=== PATIENT | female | born 1975 | race Caucasian/White ===

== ENCOUNTER 2021-08-30 07:22 | Day surgery (SDC) | payer BC ==
[2021-08-29 11:19] VITALS: BMI 24.2
[2021-08-30] MEDS ORDERED: fentaNYL Citrate/PF 100 MCG/2 ML SYRINGE ONE (09:18)
[2021-08-30] MEDS ORDERED: methylPREDNISolone Acetate 40 mg/ml Vial ONE ×3 (09:18→09:36)
[2021-08-30] MEDS ORDERED: Ketamine 50 MG/ML (10ML VIAL) ONE (09:18)
[2021-08-30] MEDS ORDERED: methylPREDNISolone Sod Succ 40 MG VIAL ONE (09:33)
[2021-08-30] MEDS ORDERED: Ferric Subsulfate (ASTRINGYN) 8 GM VIAL ONE (09:37)
[2021-08-30] MEDS ORDERED: Meperidine HCl/PF 25 MG/ML VIAL ONE (10:15)
[2021-08-30] MEDS ORDERED: Fentanyl 100 MCG/2 ML VIAL ONE (10:16)
[2021-08-30] MEDS ORDERED: Hydrocodone-Acetamin 15 ML UDCUP ONE (11:28)
== END 2021-08-30 12:50 | disposition home or self-care (01) ==
LOC: SDC 07:22
PROVIDERS: ATTEND Otolaryngology Plastic Surgery within the Head & Neck
PROC: 0CTPXZZ Resection of Tonsils, External Approach (ICD-10-PCS; principal; 2021-08-30)
PROC: 0CTQXZZ Resection of Adenoids, External Approach (ICD-10-PCS; principal; 2021-08-30)
DX: J35.03 Chronic tonsillitis and adenoiditis (principal); J03.01 Acute recurrent streptococcal tonsillitis; Z79.899 Other long term (current) drug therapy; Z88.5 Allergy status to narcotic agent
CPT/HCPCS: 88304; 93005; 93010; J2175; J2920; J3010